=== PATIENT | female | born 1965 | race African-American/Black ===

== ENCOUNTER 2021-06-05 08:57 | Emergency (ER) | payer OTHER ==
[~2021-06-05] VITALS: Ht 160 cm; Wt 59.0 kg
[~2021-06-05 08:57] MED LIST: NAPROSYN500 MG PO; NORFLEX100 MG PO
[2021-06-05 08:59] VITALS: BP 133/85
== END 2021-06-05 10:03 | disposition home or self-care (01) ==
LOC: ER 08:57
PROVIDERS: Student in an Organized Health Care Education/Training Program
DX: U07.1 COVID-19 (principal); Z88.0 Allergy status to penicillin